=== PATIENT | female | born 1995 | race Hispanic/Latino ===

== ENCOUNTER 2018-07-28 02:43 | Observation (INO) | payer BC, OTHER ==
[2018-07-28] MEDS ORDERED: Ibuprofen 800 MG TAB ONE (03:42)
[2018-07-28 06:29] VITALS: BMI 21.4
[2018-07-28] MEDS ORDERED: Ondansetron ODT 4 MG TAB SL PRN (06:39)
[2018-07-28] MEDS ORDERED: Sodium Chloride 0.9% 1,000 ML IV SCH (06:39)
[2018-07-28] MEDS ORDERED: Acetaminophen 325 MG TAB PO PRN (06:39)
[2018-07-28] MEDS ORDERED: Ondansetron PF 4 MG/2 ML Vial IVP PRN (06:39)
[2018-07-28] MEDS ORDERED: Morphine 4 MG/ML VIAL SLOW IVP PRN (06:40)
--- NOTE | 2018-07-28 08:21 | RAD ---
LEFT HAND 3 VIEWS: Date: 07/28/18 PROVIDED CLINICAL HISTORY: Left wrist pain status post injury. FINDINGS: There is a transversely oriented interarticular fracture involving the ulnar base of the fifth metaca rpal. There is an obliquely oriented probably interarticular fracture involving the base of the secon d metacarpal. No additional fracture is evident. Alignment appears anatomic. Joint spaces appear pres erved. IMPRESSION: Second and fifth metacarpal base fractures as above. POS: [facility]
--- NOTE | 2018-07-28 08:32 | RAD ---
LEFT FOREARM 2 VIEWS: Date: 07/28/18 PROVIDED CLINICAL HISTORY: Left wrist pain. FINDINGS: No evidence for fracture or other acute osseous abnormality involving the left radius and ulna. Hai chandra see concurrently dictated wrist and hand radiographs for details regarding these regions. IMPRESSION: As above. POS: [facility]
--- NOTE | 2018-07-28 08:35 | RAD ---
LEFT WRIST 3 VIEWS: Date: 07/28/18 PROVIDED CLINICAL HISTORY: Wrist pain status post injury. FINDINGS: Nondisplaced interarticular fracture involving the base of the fifth metacarpal. Obliquely oriented, nondisplaced fracture involving the base of the second metacarpal, which is also interarticular. Ther e is linear radiolucency involving the distal aspects of the capitate at the CMC joint that may refle ct nondisplaced fracture. No additional fracture is evident. Alignment appears anatomic. Joint spaces appear preserved. IMPRESSION: 1. Second and fifth metacarpal base fractures. 2. Possible capitate fracture. POS: [facility]
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
[2018-07-28 11:27] VITALS: BP 105/65; TEMP 98.2
== END 2018-07-28 11:15 | disposition home or self-care (01) ==
LOC: ERS 02:43 → SURG A 06:26
PROVIDERS: ADMIT Orthopaedic Surgery; ATTEND Orthopaedic Surgery
PROC: 2W3FX1Z Immobilization of Left Hand using Splint (ICD-10-PCS; principal; 2018-07-28)
DX: S62.311A Displaced fracture of base of second metacarpal bone, left hand, initial encounter for closed fracture (principal); S62.317A Displaced fracture of base of fifth metacarpal bone, left hand, initial encounter for closed fracture; S80.819A Abrasion, unspecified lower leg, initial encounter; V49.9XXA Car occupant (driver) (passenger) injured in unspecified traffic accident, initial encounter; W22.10XA Striking against or struck by unspecified automobile airbag, initial encounter
CPT/HCPCS: 96361; 96374; G0378; J2270